=== PATIENT | male | born 1965 ===

== ENCOUNTER 2019-09-18 15:11 | Outpatient (CLI) | payer BC | END 2019-09-18 18:00 | disposition home or self-care (01) | LOC: EKG 15:11 | DX: R06.02 Shortness of breath (principal); Z13.6 Encounter for screening for cardiovascular disorders ==

== ENCOUNTER → 2019-09-18 | Outpatient (CLI) | payer BC | END | disposition home or self-care (01) | LOC: RAD 14:48 | DX: I10 Essential (primary) hypertension (principal); R06.02 Shortness of breath ==

== ENCOUNTER → 2019-09-22 11:11 | Outpatient (CLI) | payer BC | END | disposition home or self-care (01) | LOC: LAB 11:11 | DX: E78.2 Mixed hyperlipidemia (principal); I10 Essential (primary) hypertension; R06.02 Shortness of breath ==